=== PATIENT | female | born 1980 | race Caucasian/White ===

== ENCOUNTER → 2020-04-16 | Outpatient (CLI) | payer OTHER ==
[~2020-04-16] MED LIST: AMITRIPTYLINE100 MG PO; BACTRIM DS TAB1 EACH PO; BUSPAR 10MG10 MG PO; CATAPRES 0.1MG0.1 MG PO; DILANTIN100 MG PO; EFFEXOR XR 75 M75 MG PO; KEPPRA 500 MG500 MG PO; SUBOXONE 8 MG-1 EACH SL
[2020-04-16 15:20] LABS: HEMOGLOBIN 12.3 gm/dl (12.3-15.3); RED BLOOD COUNT 4.33 M/UL (4.00-5.10); WHITE BLOOD COUNT 7.4 K/UL (4.5-11.0)
[2020-04-16 16:00] LABS: BUN/CREATININE RATIO 16 (0-10)
== END ==
LOC: LAB 14:22
PROVIDERS: Family Medicine
DX: F90.0 Attention-deficit hyperactivity disorder, predominantly inattentive type (principal)
CPT/HCPCS: 36415; 80053; 84443; 85025

== ENCOUNTER 2020-05-01 11:12 | Observation (INO) | payer OTHER ==
[~2020-05-01] VITALS: Ht 154.9 cm; Wt 64.0 kg
[~2020-05-01 11:12] MED LIST changes: -AMITRIPTYLINE100 MG PO; -BUSPAR 10MG10 MG PO; -CATAPRES 0.1MG0.1 MG PO; -DILANTIN100 MG PO; -EFFEXOR XR 75 M75 MG PO; -KEPPRA 500 MG500 MG PO
[2020-05-01 12:07] LABS: HEMOGLOBIN 10.2 gm/dl (12.3-15.3); RED BLOOD COUNT 3.48 M/UL (4.00-5.10); WHITE BLOOD COUNT 6.2 K/UL (4.5-11.0)
[2020-05-01 12:30] LABS: BUN/CREATININE RATIO 5 (0-10)
[2020-05-01] MEDS ORDERED: AMITRIPTYLINE100 MG PO (14:47)
[2020-05-01] MEDS ORDERED: BUSPAR 10MG10 MG PO (14:48)
[2020-05-01] MEDS ORDERED: EFFEXOR XR 75 M75 MG PO (14:49)
[2020-05-01] MEDS ORDERED: CATAPRES 0.1MG0.1 MG PO (14:49)
[2020-05-01] MEDS ORDERED: DILANTIN100 MG PO (14:58)
[2020-05-02 04:37] LABS: HEMOGLOBIN 9.5 gm/dl (12.3-15.3); RED BLOOD COUNT 3.35 M/UL (4.00-5.10); WHITE BLOOD COUNT 5.9 K/UL (4.5-11.0)
[2020-05-02 04:53] LABS: BUN/CREATININE RATIO 4 (0-10)
[2020-05-02] MEDS ORDERED: KEPPRA 500 MG500 MG PO (11:14)
[2020-05-02] MEDS ORDERED: CATAPRES 0.1MG0.1 MG PO (11:32)
== END 2020-05-02 15:15 | disposition home or self-care (01) ==
LOC: ER1 11:12 → CDU 14:22 → MED SURG 4 19:55
PROVIDERS: Physician Assistant; Physician Assistant Medical; ADMIT Internal Medicine
DX: R56.9 Unspecified convulsions (principal); B19.20 Unspecified viral hepatitis C without hepatic coma; F17.210 Nicotine dependence, cigarettes, uncomplicated; Z79.899 Other long term (current) drug therapy; Z20.822 Contact with and (suspected) exposure to COVID-19; Z87.898 Personal history of other specified conditions; Z91.19 Patient's noncompliance with other medical treatment and regimen
CPT/HCPCS: 36415; 80048; 80053; 80185; 80307; 81001; 83735; 85025; 85027; 96374; 96375; 99285; G0378; J1953; J2060; J7040; U0002

== ENCOUNTER 2020-06-07 01:38 | Emergency (ER) | payer OTHER ==
[~2020-06-07 01:38] MED LIST changes: +AMITRIPTYLINE100 MG PO; +BUSPAR 10MG10 MG PO; +CATAPRES 0.1MG0.1 MG PO; +DILANTIN100 MG PO; +EFFEXOR XR 75 M75 MG PO; +KEPPRA 500 MG500 MG PO
[2020-06-07 02:56] LABS: BUN/CREATININE RATIO 16 (0-10)
[2020-06-07 04:11] LABS: HEMOGLOBIN 8.7 gm/dl (12.3-15.3); RED BLOOD COUNT 3.2 M/UL (4.00-5.10); WHITE BLOOD COUNT 9.1 K/UL (4.5-11.0)
[2020-06-09 01:17] LABS: ACINETOBACTER BAUMANNII Not Detected (Negative); CANDIDA ALBICANS Not Detected (Negative); CANDIDA KRUSEI Not Detected (Negative); CANDIDA TROPICALIS Not Detected (Negative); ENTEROCOCCUS Not Detected (Negative); ESCHERICHIA COLI Not Detected (Negative); HAEMOPHILUS INFLUENZAE Not Detected (Negative); KLEBSIELLA OXYTOCA Not Detected (Negative); KLEBSIELLA PNEUMONIAE Not Detected (Negative); KPC-CARBAPENEM-RESISTANCE GENE Not Detected (Negative); PROTEUS Not Detected (Negative); PSEUDOMONAS AERUGINOSA Not Detected (Negative); SERRATIA MARCESANS Not Detected (Negative); STAPHYLOCOCCUS Not Detected (Negative); STAPHYLOCOCCUS AUREUS Not Detected (Negative); STREP AGALACTIAE (GROUP B) Not Detected (Negative); STREP PYOGENES (GROUP A) Not Detected (Negative); mecA (METHICILLIN RESIST GENE Not Detected (Negative); vanA/B (VANCOMYCIN RESIST GENE Not Detected (Negative)
[2020-06-09 03:46] LABS: STREPTOCOCCUS DETECTED (Negative)
== END 2020-06-07 11:46 ==
LOC: ER1 01:38
PROVIDERS: Emergency Medicine
DX: T43.622A Poisoning by amphetamines, intentional self-harm, initial encounter (principal); G40.909 Epilepsy, unspecified, not intractable, without status epilepticus; Z20.822 Contact with and (suspected) exposure to COVID-19; X83.8XXA Intentional self-harm by other specified means, initial encounter
CPT/HCPCS: 0240U; 31500; 36600; 70450; 71045; 80053; 80307; 81001; 82550; 82553; 82803; 83605; 83690; 83880; 84484; 85025; 85610; 85730; 86850; 86870; 86900; 86901; 87040; 87077; 87150; 87186; 93005; 94002; 96365; 96366; 96375; 99285; J0692; J2704; J3370

== ENCOUNTER 2021-10-10 21:07 | Emergency (ER) | payer OTHER ==
[2021-10-10 22:03] LABS: HEMOGLOBIN 10.8 gm/dl (12.3-15.3); RED BLOOD COUNT 3.56 M/UL (4.00-5.10); WHITE BLOOD COUNT 10.9 K/UL (4.5-11.0)
[2021-10-10 22:50] LABS: BUN/CREATININE RATIO 11 (0-10)
== END 2021-10-11 02:20 | disposition left against medical advice (07) ==
LOC: ER1 21:07
PROVIDERS: Physician Assistant
DX: R60.0 Localized edema (principal); F17.200 Nicotine dependence, unspecified, uncomplicated
CPT/HCPCS: 71045; 80053; 83880; 85025; 99283